=== PATIENT | female | born 1945 | race Caucasian/White ===

== ENCOUNTER 2021-01-02 10:08 | Outpatient (CLI) | payer OTHER, SELFPAY ==
--- NOTE | 2021-01-02 10:00 | RT.EKG_ITS ---
APPROVED REPORT Exam: Resting ECG Patient Location: O HR:61 bpm ECG Measurements Heart Rate 61 AXIS RI 164 P 29 QRSd 94 QRS 9 QT 397 T 27 QTc 399 Conclusion Sinus rhythm...normal P axis, V-rate 60- 99
== END 2021-01-02 10:09 | disposition home or self-care (01) ==
LOC: DI.CM 10:08
PROVIDERS: PCP Family Medicine; Visit Provider Family Medicine
DX: E78.00 Pure hypercholesterolemia, unspecified (principal)
CPT/HCPCS: 93010

== ENCOUNTER 2021-01-13 07:58 | Day surgery (SDC) | payer OTHER, SELFPAY ==
[2021-01-13 08:33] VITALS: BP 145/81; PULSE 71; RESP 16; TEMP 36; O2SAT 96
[2021-01-13] MEDS: Tropicam./Phenyleph. (1/2.5%) 5 ML BTL OS ×3 (08:43→08:53)
[2021-01-13] MEDS: Tetracaine 0.5% 4 ML BTL OS (09:43)
[2021-01-13] MEDS: Balanced Salt Soln.-PLUS 500 ML BAG (09:44)
[2021-01-13] MEDS: Duovisc Viscoelastic System EACH 1 EACH (09:45)
[2021-01-13] MEDS: Lidocaine 1% Pres-Free 5 ML VIAL (09:46)
[2021-01-13] MEDS: Lidocaine 2% Jelly 6 ML SYR (09:48)
[2021-01-13] MEDS: Povidone-Iodine Ophth 30 ML BTL (09:50)
[2021-01-13 10:07] VITALS: BP 156/83; PULSE 61; RESP 18; TEMP 36.5; O2SAT 99
--- NOTE | 2021-01-13 10:09 | W.PM.DSUDISC ---
Discharge Plan Disposition Patient Disposition: HOME Condition: Good Discharge Details Attending Provider: Gunnar Hutchins Primary Care Provider: Prudence Jackson Home Meds and New Rx's Prescriptions: No Action NO DAILY MEDICATIONS NONE RF: 0 Discharge Instructions Stand Alone Forms: Post-op Topical Cataract, Isabel Orosco (DSU) Discharge Orders Discharge Orders: Discharge Order (Routine); Ordered 01/13/21 Ordered By: Gunnar Hutchins DS: Diagnosis Discharge Diagnosis (1) Nuclear sclerotic cataract of left eye: Status: Acute (2) Cortical cataract of left eye: Status: Acute (3) Posterior subcapsular age-related cataract of left eye: Status: Resolved
--- NOTE | 2021-01-13 10:10 | W.PM.OP ---
Date of service: 01/13/21 Time of Service: 10:10 Operative Note Operative Note DATE OF PROCEDURE: 01/13/21 PRE-OP DIAGNOSIS: Nuclear/cortical cataract, left eye POST-OP DIAGNOSIS: same PROCEDURE: Cataract extraction using phacoemulsification with intraocular lens implant, left eye SURGEON: Gunnar Hutchins ANESTHESIA TYPE: Local By Surgeon and MAC Refer to Anesthesia Record PATHOLOGY: none sent COMPLICATIONS: None Patient was transported to: same day Patient's condition: stable Implants: Irving [employer] / [employer] Tecnis ZCB00 Indications: Progressive decreased vision due to cataract, left eye Procedure Description: CATARACT SURGERY OPERATIVE REPORT PREOPERATIVE DIAGNOSIS: Nuclear/cortical cataract, left eye POSTOPERATIVE DIAGNOSIS: Same OPERATION: Cataract extraction using phacoemulsification with posterior chamber intraocular lens implant, left eye. IOL: IOL Qualitative Field Project Manager/Model: J[employer]J Vision / DRE Tecnis ZCB00 IOL Power: + 21.0 diopters IOL Serial Number: [id number] Optic Diameter: 6.0mm Haptic/Overall Diameter: 13.0mm PHACO INFO: Bradley App Annieurion Vision System with OZil and Active Fluidics Cumulative Dispersed Energy (CDE): 6.52 seconds SURGEON: Gunnar Hutchins MD, CEFERINO ANESTHESIA: Monitored Anesthesia Care (MAC), with local sub-tenon's anesthetic infiltration COMPLICATIONS: None SPECIMENS: None INDICATIONS FOR PROCEDURE: The patient is a 75-year-old lady with history of diminished visual acuity in her left eye secondary to the development of nuclear and cortical cataract. The option of cataract surgery was offered to the patient and she felt she was symptomatic enough that she wished to proceed. PROCEDURE: The correct surgical eye was identified and marked as the left eye and the pupil was dilated in the preoperative area using mydriatics and cycloplegics. The dilated pupil size was 7.0 mm. She elected to proceed without sedation. The patient was brought to the operating room where cardiopulmonary monitoring was instituted and surgical time-out was performed, confirming the correct operative eye and IOL power. Topical anesthesia was administered and ophthalmic povidone-iodine 5% was instilled into the conjunctival fornices. Lidocaine gel was applied to the cornea and the zaina-ocular area was prepped with Betadine 10% solution and draped in the usual sterile fashion for intraocular surgery, including an aperture drape. A Tegaderm transparent film dressing was cut in half and used to cover the lashes and lid margins. Care was taken to sequester the lashes and lid margins under the Tegaderm dressing. A lid speculum was placed between the lids of the operative eye and the Gael-Tiffanie operating microscope was maneuvered into position. Marcela scissors were then used to make a conjunctival buttonhole approximately 6mm posterior to the limbus in the inferonasal quadrant. Blunt dissection was carried out to expose bare sclera, and a blunt-tipped sub-tenon?s anesthesia cannula was introduced and passed posteriorly along the globe where non-preserved plain lidocaine was injected into posterior sub-Tenon?s space. A sideport knife was used to make a paracentesis port superior/superiortemporally. Intraocular phenylephrine/lidocaine was injected into the anterior chamber. The anterior chamber was then filled with viscoelastic. A 2.4mm keratome knife was used to create a half-thickness groove at the limbus and then to construct a three-plane near-clear corneal tunnel extending 2.0mm into clear cornea in the temporal position. . A flap was raised on the anterior capsule and capsulorhexis forceps were used to complete a continuous curvilinear capsulorhexis of 5.5mm. Balanced salt solution was then used to perform cortical cleaving hydrodissection and nuclear hydrodelineation until the lens could be freely rotated within the capsular bag. The lens nucleus was then disassembled and removed within the capsular bag and iris plane using phacoemulsification. Residual cortical material was removed using the 45-degree angled silicone I/A tip with 0.3mm port. The posterior capsule was carefully polished to remove as much residual lens epithelial cells as safely possible. The capsular bag was then inflated and the anterior chamber deepened with viscoelastic. The lens implant described above was inserted into the capsular bag using the DRE [place] Injector. A Kuglen hook was used to dial the IOL into position. Residual viscoelastic was then removed first from posterior to the IOL, then from the anterior chamber using the I/A handpiece. The lens implant was noted to center nicely within the capsular bag. The incisions were stromally hydrated, and the anterior chamber was reformed using BSS. Then 0.5cc of moxifloxacin 1.0mg/ml were injected into the capsular bag and anterior chamber. The incisions were checked with a Weck spear and found to be secure. Several drops of ophthalmic povidone-iodine 5% were then applied to the eye followed by two drops of Imprimis combination prednisolone/moxifloxacin/nepafenac solution. The drapes were removed and a clear plastic protective eye shield was placed over the eye. The patient was then returned to Same Day Surgery in stable condition.
== END 2021-01-13 10:35 | disposition home or self-care (01) ==
PROVIDERS: PCP Family Medicine; Visit Provider Ophthalmology
PROC: (CPT 66984; principal; 2021-01-13 10:30)
DX: H25.12 Age-related nuclear cataract, left eye (principal); H25.042 Posterior subcapsular polar age-related cataract, left eye; E78.00 Pure hypercholesterolemia, unspecified
CPT/HCPCS: 66984; V2632

== ENCOUNTER 2021-01-27 06:54 | Day surgery (SDC) | payer OTHER, SELFPAY ==
[2021-01-27 07:04] VITALS: BP 146/87; PULSE 74; RESP 16; TEMP 36.2; O2SAT 93
[2021-01-27] MEDS: Tropicam./Phenyleph. (1/2.5%) 5 ML BTL OD ×3 (07:20→07:32)
[2021-01-27] MEDS: Balanced Salt Soln.-PLUS 500 ML BAG (08:25)
[2021-01-27] MEDS: Duovisc Viscoelastic System EACH 1 EACH (08:25)
[2021-01-27] MEDS: Lidocaine 1% Pres-Free 5 ML VIAL (08:26)
[2021-01-27] MEDS: Lidocaine 2% Jelly 6 ML SYR (08:26)
[2021-01-27] MEDS: Tetracaine 0.5% 4 ML BTL OD (08:27)
[2021-01-27] MEDS: Povidone-Iodine Ophth 30 ML BTL (08:27)
--- NOTE | 2021-01-27 08:49 | W.PM.DSUDISC ---
Discharge Plan Disposition Patient Disposition: HOME Condition: Good Discharge Details Attending Provider: Gunnar Hutchins Primary Care Provider: Prudence Jackson Home Meds and New Rx's Prescriptions: No Action NO DAILY MEDICATIONS NONE RF: 0 Discharge Instructions Stand Alone Forms: Post-op Topical Cataract, Isabel Orosco (DSU) Discharge Orders Discharge Orders: Discharge Order (Routine); Ordered 01/27/21 Ordered By: Gunnar Hutchins DS: Diagnosis Discharge Diagnosis (1) Posterior subcapsular age-related cataract, right eye: Status: Resolved (2) Nuclear sclerotic cataract of right eye: Status: Resolved (3) Cortical cataract of right eye: Status: Resolved
--- NOTE | 2021-01-27 08:50 | ROE_ITS ---
Date of service: 01/27/21 Time of Service: 08:50 Operative Note Operative Note DATE OF PROCEDURE: 01/27/21 PRE-OP DIAGNOSIS: Nuclear/cortical/posterior subcapsular cataract, right eye POST-OP DIAGNOSIS: same PROCEDURE: Cataract extraction using phacoemulsification with intraocular lens implant, right eye SURGEON: Gunnar Hutchins ANESTHESIA TYPE: Local By Surgeon and MAC Refer to Anesthesia Record ESTIMATED BLOOD LOSS: 0 PATHOLOGY: none sent COMPLICATIONS: None Patient was transported to: same day Patient's condition: stable Implants: Irving and [employer] / [employer] Tecnis ZCB00 intraocular lens Indications: Progressive decreased vision due to cataract, right eye Procedure Description: CATARACT SURGERY OPERATIVE REPORT PREOPERATIVE DIAGNOSIS: Nuclear/cortical/posterior subcapsular cataract, right eye POSTOPERATIVE DIAGNOSIS: Same OPERATION: Cataract extraction using phacoemulsification with posterior chamber intraocular lens implant, right eye. IOL: IOL Commissioned Security Officer/Model: J&J Vision / DRE Tecnis ZCB00 IOL Power: + 21.0 diopters IOL Serial Number: [id number] Optic Diameter: 6.0mm Haptic/Overall Diameter: 13.0mm PHACO INFO: Bradley [employer] Medicalurion Vision System with OZil and Active Fluidics Cumulative Dispersed Energy (CDE): 8.37 seconds SURGEON: Gunnar Hutchins MD, CEFERINO ANESTHESIA: Monitored Anesthesia Care (MAC), with local sub-tenon's anesthetic infiltration COMPLICATIONS: None SPECIMENS: None INDICATIONS FOR PROCEDURE: Patient is a 75-year-old lady with history of diminished visual acuity in both eyes secondary to the development of bilateral nuclear and cortical and posterior subcapsular cataract. She has already undergone cataract surgery in the left eye and is doing well postoperatively. She now presents for cataract surgery in the right eye. PROCEDURE: The correct surgical eye was identified and marked as the right eye and the pupil was dilated in the preoperative area using mydriatics and cycloplegics. The dilated pupil size was 7.0 mm. She elected to proceed without oral sedation. The patient was brought to the operating room where cardiopulmonary monitoring was instituted and surgical time-out was performed, confirming the correct operative eye and IOL power. Topical anesthesia was administered and ophthalmic povidone-iodine 5% was instilled into the conjunctival fornices. Lidocaine gel was applied to the cornea and the zaina-ocular area was prepped with Betadine 10% solution and draped in the usual sterile fashion for intraocular surgery, including an aperture drape. A Tegaderm transparent film dressing was cut in half and used to cover the lashes and lid margins. Care was taken to sequester the lashes and lid margins under the Tegaderm dressing. A lid speculum was placed between the lids of the operative eye and the Gael-Tiffanie operating microscope was maneuvered into position. Marcela scissors were then used to make a conjunctival buttonhole approximately 6mm posterior to the limbus in the inferonasal quadrant. Blunt dissection was carried out to expose bare sclera, and a blunt-tipped sub-tenon?s anesthesia cannula was introduced and passed posteriorly along the globe where non- preserved plain lidocaine was injected into posterior sub-Tenon?s space. A sideport knife was used to make a paracentesis port inferiortemporally. Intraocular phenylephrine/lidocaine was injected into the anterior chamber. The anterior chamber was then filled with viscoelastic. A 2.4mm keratome knife was used to create a half-thickness groove at the limbus and then to construct a three-plane near-clear corneal tunnel extending 2.0mm into clear cornea in the superiortemporal position. . A flap was raised on the anterior capsule and capsulorhexis forceps were used to complete a continuous curvilinear capsulorhexis of 5.0 mm. Balanced salt solution was then used to perform cortical cleaving hydrodissection and nuclear hydrodelineation until the lens could be freely rotated within the capsular bag. The lens nucleus was then disassembled and removed within the capsular bag and iris plane using phacoemulsification. Residual cortical material was removed using the I/A handpiece. The posterior capsule was carefully polished to remove as much residual lens epithelial cells as safely possible. The capsular bag was then inflated and the anterior chamber deepened with viscoelastic. The lens implant described above was inserted into the capsular bag using the DRE [place] Injector. A Kuglen hook was used to dial the IOL into position. Residual viscoelastic was then removed first from posterior to the IOL, then from the anterior chamber using the I/A handpiece. The lens implant was noted to center nicely within the capsular bag. The incisions were stromally hydrated, and the anterior chamber was reformed using BSS. Then 0.5cc of moxifloxacin 1.0mg/ml were injected into the capsular bag and anterior chamber. The incisions were checked with a Weck spear and found to be secure. Several drops of ophthalmic povidone-iodine 5% were then applied to the eye followed by two drops of Imprimis combination prednisolone/moxifloxacin/nepafenac solution. The drapes were removed and a clear plastic protective eye shield was placed over the eye. The patient was then returned to Same Day Surgery in stable condition.
== END 2021-01-27 09:30 | disposition home or self-care (01) ==
PROVIDERS: PCP Family Medicine; Visit Provider Ophthalmology
PROC: (CPT 66984; principal; 2021-01-27 08:30)
DX: H25.041 Posterior subcapsular polar age-related cataract, right eye (principal); H25.11 Age-related nuclear cataract, right eye; H25.011 Cortical age-related cataract, right eye; Z96.1 Presence of intraocular lens; Z98.42 Cataract extraction status, left eye
CPT/HCPCS: 66984; V2632

== ENCOUNTER 2021-08-23 13:32 | Outpatient (CLI) | payer OTHER, SELFPAY ==
--- NOTE | 2021-08-23 13:31 | DI.RAD_ITS ---
Exam(s) XR SHOULDER RT COMPLETE 2+V EXAM: XR SHOULDER RT COMPLETE 2+V CLINICAL HISTORY: right shoulder pain,m25.519. TECHNIQUE: 2D digital imaging was performed of the right shoulder. Five images were obtained. AP, Grashey, Y-view and axillary views were obtained. COMPARISON: No exams were available for comparison FINDINGS: BONES: No acute fracture is present. No bony destructive lesion is seen. JOINTS: No dislocation present. Mild degenerative changes are seen at the acromioclavicular joint. SOFT TISSUE: Normal. IMPRESSION: Mild degenerative changes of the right AC joint. DATA REPOSITORY: RADIATION DOSE DELIVERED:
== END 2021-08-23 13:52 ==
PROVIDERS: PCP Family Medicine; Visit Provider Family Medicine
DX: M25.511 Pain in right shoulder (principal); M19.011 Primary osteoarthritis, right shoulder
CPT/HCPCS: 73030

== ENCOUNTER 2021-09-14 01:21 | Outpatient (CLI) | payer MEDICARE, SELFPAY ==
--- NOTE | 2021-09-14 10:05 | DI.MRI_ITS ---
Exam(s) MR UPPER JOINT RT WO EXAM: MR UPPER JOINT RT WO CLINICAL HISTORY: INTENSE PAIN, DJD, ROTATOR CUFF TEAR,M75.100,M25.519. TECHNIQUE: Multiplanar multisequence MRI was performed. COMPARISON: Plain films 23 August 2021 FINDINGS: Bones: There is no fracture or contusion pattern. Degenerative signal changes in the superior humeral head. Red marrow reconversion could indicate anemia. The acromioclavicular joint shows moderate spurring. Glenohumeral joint: There is a large amount of fluid in the subacromial subdeltoid bursa. There is a small amount of fluid in the glenohumeral joint and subcoracoid region. Rotator Cuff: The supraspinatus tendon shows a focal tear, full-thickness involving anterior portion of the tendon. There is some retraction. There is no significant muscle atrophy.. The the infraspinatus, subscap ularis and teres minor are normal. Labrum and biceps anchor: The long head of the biceps tendon appears medially subluxed. The anchor appears intact.. The labru m is within normal limits. IMPRESSION: Focal full-thickness tear of the anterior supraspinatus tendon. Medial subluxation of the long head of the biceps tendon. Large amount of fluid in the subacromial subdeltoid bursa. DATA REPOSITORY:
== END 2021-09-14 01:41 ==
PROVIDERS: PCP Family Medicine; Visit Provider Family Medicine
DX: M25.511 Pain in right shoulder (principal); M25.411 Effusion, right shoulder; M75.101 Unspecified rotator cuff tear or rupture of right shoulder, not specified as traumatic
CPT/HCPCS: 73221

== ENCOUNTER → 2021-12-12 10:49 | Outpatient (BNVA) | payer MEDICARE, SELFPAY | PROVIDERS: PCP Family Medicine; Referring Provider Family Medicine; Visit Provider Student in an Organized Health Care Education/Training Program | DX: M75.101 Unspecified rotator cuff tear or rupture of right shoulder, not specified as traumatic (principal) | CPT/HCPCS: 99204; 99213 ==

== ENCOUNTER 2022-06-15 16:08 | Outpatient (REF) | payer MEDICARE, SELFPAY ==
[2022-06-15 20:34] LABS: Bilirubin Negative (Negative); Blood Moderate (Negative); Clarity Cloudy (Clear); Glucose Negative (Negative); Ketones Negative (Negative); Leukocyte Esterase Large (Negative); Nitrite Negative (Negative); Urobilinogen 0.2 EU/dL (Up TO 0.2); pH 5.5 (5-8)
[2022-06-15 20:43] LABS: Bacteria Moderate HPF (Negative); Epithelial Cells Few HPF (Negative); WBC >50 HPF (0-5)
[2022-06-15 20:44] LABS: C & S Indicated? Yes; Casts Negative LPF (Negative); Crystals Negative HPF (Negative); Mucus Negative (Negative)
== END 2022-06-15 16:09 | disposition home or self-care (01) ==
LOC: LBN 16:08
PROVIDERS: PCP Family Medicine; Visit Provider Physician Assistant
DX: R39.9 Unspecified symptoms and signs involving the genitourinary system (principal)
CPT/HCPCS: 87077; 81003; 81015; 87086; 87186

== ENCOUNTER 2022-11-21 03:14 | Outpatient (CLI) | payer MEDICARE, SELFPAY ==
[2022-11-21 12:44] LABS: Abs Immature Grans 0.02 10^3/uL (0.0-0.06); Absolute Basophil Count 0.07 10^3/uL (0.0-0.2); Absolute Eosinophil Count 0.34 10^3/uL (0.0-0.7); Absolute Lymphocyte Count 1.86 10^3/uL (1.2-3.4); Absolute Monocyte Count 0.43 10^3/uL (0.1-0.8); Absolute Neutrophil Count 3.86 10^3/uL (1.2-6.7); Basophils % 1.1; Eosinophils % 5.2; HCT 48.5 % (36.0-46.0); HGB 15.5 g/dL (11.2-15.7); Immature Grans % 0.3; Lymphocytes % 28.3; MCV 91 fL (80-95); MPV 10.1 fL (8.0-11.0); Monocytes % 6.5; Neutrophils % 58.6; Platelet Count 231 10^3/uL (130-400); RBC 5.35 10^6/uL (3.93-5.22); RDW-SD 43.3 fL; WBC 6.58 10^3/uL (4.4-10.8)
[2022-11-21 12:59] LABS: ALT 21 U/L (14-59); AST 25 U/L (15-37); Albumin 3.7 g/dL (3.4-5.0); Alkaline Phosphatase 72 U/L (46-116); Anion Gap 0.5 mmol/L (3-11); BUN 14 mg/dL (7-18); Bilirubin, Total 0.5 mg/dL (0.2-1.0); CO2 26.5 mmol/L (21.0-32.0); CREATININE 0.8 mg/dL (0.55-1.02); Calcium 8.9 mg/dL (8.5-10.1); Chloride 106 mmol/L (98-107); Glucose 111 mg/dL (74-106); Lipase 149 U/L (73-393); Potassium 4.7 mmol/L (3.5-5.1); Sodium 133 mmol/L (136-145); Total Protein 7.3 g/dL (6.4-8.2)
[2022-11-21 13:11] LABS: Bilirubin Negative (Negative); Blood Negative (Negative); Clarity Clear (Clear); Glucose Negative (Negative); Ketones Negative (Negative); Leukocyte Esterase Negative (Negative); Nitrite Negative (Negative); Specific Gravity >= 1.030 (1.005-1.025); Urobilinogen 0.2 EU/dL (Up TO 0.2); pH 5.5 (5-8)
== END 2022-11-21 03:15 | disposition home or self-care (01) ==
LOC: LOS 03:16
PROVIDERS: PCP Family Medicine; Visit Provider Family Medicine
DX: R10.11 Right upper quadrant pain (principal); R30.0 Dysuria; E78.5 Hyperlipidemia, unspecified
CPT/HCPCS: 36415; 80053; 83690; 81003; 85025

== ENCOUNTER 2022-11-28 01:23 | Outpatient (CLI) | payer MEDICARE, SELFPAY ==
--- NOTE | 2022-11-28 06:44 | DI.US_ITS ---
Exam(s) US ABDOMEN LIMITED EXAM: US ABDOMEN LIMITED CLINICAL HISTORY: RUQ pain,r10.11 TECHNIQUE: Ultrasound abdomen performed using standard protocol. COMPARISON: US ABDOMEN ULTRASOUND (P) from 02/25/2017 FINDINGS: LIVER: Normal size and echogenicity. No focal liver lesions are seen.. GALLBLADDER: No evidence of cholelithiasis. No evidence of wall thickening. No pericholecystic fluid identified. SALCEDO'S SIGN: Negative. BILIARY SYSTEM: No intrahepatic or extrahepatic biliary ductal dilation. RIGHT KIDNEY: Normal size. No evidence of renal calculi. No evidence of hydronephrosis. No suspicious renal mass. No cyst identified. PANCREAS: Normal where visualized. ABDOMINAL AORTA AND IVC: Visualized portions normal caliber. ASCITES: None seen. IMPRESSION: Normal sonographic appearance of the right upper quadrant. DATA REPOSITORY:
== END 2022-11-28 01:43 ==
LOC: DI 01:24
PROVIDERS: PCP Family Medicine; Visit Provider Family Medicine
DX: R10.11 Right upper quadrant pain (principal)
CPT/HCPCS: 76705

== ENCOUNTER 2023-11-06 12:11 | Emergency (ER) | payer MEDICARE, SELFPAY ==
[2023-11-06] VITALS (14 sets, daily range): BP systolic 137–199; BP diastolic 67–98; PULSE 54–77; RESP 12–18; TEMP 36.4–36.5; O2SAT 93–97
--- NOTE | 2023-11-06 12:00 | RT.EKG_ITS ---
APPROVED REPORT Exam: Resting ECG Reason for Exam: Chest Pains Patient Location: E HR:69 bpm ECG Measurements Heart Rate 69 AXIS KS 165 P 49 QRSd 90 QRS 9 QT 401 T 30 QTc 429 Conclusion Sinus rhythm...normal P axis, V-rate 60- 99 Narrow complex normal sinus rhythm at a rate of 69. Left axis. Intervals within normal limits. No ST segment abnormalities. No T wave inversions. Appears similar to prior dated 3 years ago.
--- NOTE | 2023-11-06 12:14 | W.ED.GENAD ---
HPI General Date/Time Provider Initiated Documentation: 11/06/23 12:14. HPI Narrative: MDM This is an overall very well-appearing afebrile and not tachycardic 78-year-old female with chest pain concerning for multiple etiologies. Patient reports that her pain is only in the morning and not exertional but relieved by aspirin. She lacks risk factors for ACS however will obtain ECG and 2 sets of troponins. No tearing quality to suggest aortic dissection. No fevers no cough to suggest pneumonia. No history of emesis to suggest increased risk for esophageal rupture. Not a dialysis patient nor hypotensive nor tachycardic so doubt tamponade. No history of trauma nor falls to suggest increased risk for pneumothorax. No recent URI symptoms nor any positional component so I have a very low suspicion for pericarditis. No rash to chest to suggest zoster. No pain out of proportion to suggest necrotizing soft tissue infection. No epigastric tenderness to suggest pancreatitis. No nausea vomiting or diarrhea and no right upper quadrant pain so doubt acute cholecystitis. 12:53 PM CBC lacks anemia thrombocytopenia and leukocytosis. 1:10 PM Negative reassuring troponin. Basic metabolic panel showing no GARCIA. No acute electrolyte abnormalities. Mildly elevated BUN. 1:25 PM Reassuring negative D-dimer less than 1000 ng/ML FEU. 2:27 PM Repeat troponin negative. Will discharge patient with empiric trial of expectant outpatient management with primary care follow-up. Patient the patient's age she may require stress test moving forward but will defer this decision to her primary care provider. HEART SCORE Chest pain Diagnostic Protocol: [-History/Physical/Gestalt: Slightly Suspicious (0)] [-EKG: Normal and/or unchanged from prior EKG (0)] [- AGE: 65 and older (+2)] [-RISK FACTORS: No known risk factors (0)] [-TROPONIN: <= normal limit (0)] - TOTAL SCORE: 2 - Risk Factors: DM, current or recent smoker, HTN, HLD, family hx of CAD, obesity - INTERPRETATION: With a total score of 3 or less, risk of major cardiac event within six weeks 1.7%, likely lower with two negative troponins. [I explained to the patient that the risk of subsequent major cardiac event within 1 month is not 0, however risk predicted to be less than 2%. Patient verbalized understanding, accepts this risk and shared and the decision for discharge with PCP follow-up for further evaluation and management. They understand to return to the ED immediately with any worsening symptoms, new symptoms or other concerns.] Chronic conditions affecting the care of the patient: N/A History obtained from an outside historian: N/A External record review: [facility] [place] EMR [Diagnostic interpretations performed by me: Per my independent interpretation chest x-ray shows: No acute cardiopulmonary process Per my independent interpretation EKG shows: Narrow complex normal sinus rhythm at a rate of 69. Left axis. Intervals within normal limits. No ST segment abnormalities. No T wave inversions. Appears similar to prior dated 3 years ago. ]Medications: N/A Social determinants of health affecting disposition: N/A Management discussed with: N/A Treatment/interventions considered: N/A Response to therapies provided: N/A HPI This is an 78-year-old female arriving to the emergency department in the setting of left-sided chest pain which began several days ago. Patient reports that she wakes up in the morning and has left-sided chest pain. She says that it is a squeezing sensation. It last for several minutes. It resolves with aspirin of which she has been taking for 81 mg tablets in the morning for the past 3 mornings. She has had no recent falls. She has no history of hypertension hyperlipidemia nor diabetes. She has no siblings but denies any history of premature family coronary artery disease. She drinks a glass of wine with dinner every night but denies routine tobacco and illicits. No recent fevers cough. No shortness of breath. No history of PE nor DVTs. Patient is not a dialysis patient. She has not noticed any rash to her chest. Exam General: Well-appearing in no acute distress speaking in complete sentences. Head: Normocephalic, atraumatic. Eye: Extraocular eye movements intact. No conjunctival injection. No scleral icterus. Ear, nose, mouth, throat: Grossly normal inspection. Normal voice, handling secretions normally. Neck: Trachea midline. Cardiovascular: Well-perfused distal extremities. Regular rate and rhythm Respiratory: Nonlabored respiration. Clear lungs bilaterally Gastrointestinal: Nondistended abdomen. Soft nontender abdomen Musculoskeletal: No edema. Moving all 4 extremities spontaneously. Skin: Normal for age and race, grossly normal temperature and turgor. No acute rash. Neurologic: Alert and appropriate, no apparent acute deficits. Psychiatric: Mood and manner are appropriate. Grooming and personal hygiene are appropriate. Related Data Home Medications Medication Instructions Recorded Confirmed Unknown [No Known Home Meds] 11/16/22 11/06/23 Allergies Allergy/AdvReac Type Severity Reaction Status Date / Time Sulfa (Sulfonamide Allergy Intermediate Swelling Verified 12/13/22 12:57 Antibiotics) PFSH All Active Problems (Updated 11/06/23 @ 14:28 by Jose Dugan MD) Chest pain, unspecified (Acute) Skin lesion (Acute) Osteopenia (Acute) Medical History (Updated 11/06/23 @ 14:28 by Jose Dugan MD) Pain, abdominal, RUQ Rib pain on left side Thoracic back pain Rotator cuff tear Shoulder pain Nuclear sclerotic cataract of left eye Cortical cataract of left eye Cataracts, bilateral Decreased vision in both eyes Chronic pain of right knee (06/15/16) Closed fracture of humerus (05/03/08) Hypercholesterolemia Lip lesion (02/07/16) 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 cyst in [facility] cold nodule/ nl TSH Surgical History Posterior subcapsular age-related cataract, right eye Nuclear sclerotic cataract of right eye Cortical cataract of right eye Posterior subcapsular age-related cataract of left eye Hx of shoulder surgery left History of hysterectomy (12/27/11) Status post breast biopsy Status post tonsillectomy and adenoidectomy Tonsillectomy and adenoidectomy (~1956) Abdominal hysterectomy (~05/1996) Biopsy of breast (~1962) right; benign lump ACNE TREATED WITH RADIATION Family History Mother , 66 Depression Colon cancer Father , 74 Lung cancer Bone cancer Maternal Grandfather , flu at age 91. No problems noted. Paternal Grandfather , 46 Stroke Maternal Grandmother , 91 Dementia Heart disease Paternal Grandmother , BROKEN HIP at age 99. No problems noted. Son No problems noted. Son No problems noted. Son No problems noted. Social History (Updated 12/17/22 @ 13:38 by Shirin Leon) Smoking/Tobacco Use Status: Never Second Hand Exposure: Yes (distant past) Smoking risk assessment performed?: Yes Alcohol Intake: current Alcohol Intake frequency: a few times a month Alcohol type: beer, wine and hard liquor Drug use: Never Substance use type: does not use Caregiver/Support person: No Household members: spouse Housing: house Communication Needs: None Do you need help understanding health information?: Never Pets and animals: No Sexually active: Yes Do you think of yourself as: straight/heterosexual Current gender identity: female What is your relationship status?: How often do you talk on the phone with friends or family?: three or more times per week How often do you get together with friends or relatives?: once per week How often do you attend evangelical or adventist services?: 4 or more times per year Do you belong to any clubs or organized social groups?: no Panel score (0-1 are the most socially isolated patients): 3 What type of physical activity do you participate in: walking and yoga Duration: 45-60 minutes/day Frequency: daily [place]/Jewish: Unitarian Universalist Special [place] needs: No Seatbelt use: always Drive intox or ride w/intox escort car driver: No Do you feel safe at home: Yes Do you feel safe in your relationship?: Yes Medical Decision Making Quality:SDOH Health Related Social Needs: Health related social needs risk of homeless, material hardship, food insecurity, transpo insecurity, personal safety Discharge Plan Disposition Patient Disposition: Home Discharge Details Clinical Impression: Chest pain, unspecified Primary Care Provider: Prudence Jackson ED Provider: Jose Dugan Home Meds and New Rx's Prescriptions: No Action No Known Home Meds Discharge Instructions Additional Instructions: You were seen in the emergency department for your chest pain. Your blood work and EKG showed no sign of a heart attack. Your x-ray showed no sign of pneumonia. Your blood work showed no sign of blood clot in your lungs. As we discussed, please return to the emergency department if you develop worsening pain passout or have difficulty breathing. Otherwise please follow-up with your primary care provider as needed in the next week. Discharge Data Discharge Date/Time-TO BE ENTERED AT DEPARTURE: 11/06/23 14:41
--- NOTE | 2023-11-06 12:30 | DI.RAD_ITS ---
Exam(s) XR CHEST 2V PA LATERAL EXAM: XR CHEST 2V PA LATERAL CLINICAL HISTORY: Chest pain TECHNIQUE: 2D digital imaging was performed. COMPARISON: [facility] from 06/03/2018 FINDINGS: HEART: Normal size. Aorta: Not dilated. PULMONARY VASCULATURE: Normal. LUNGS: Clear. PLEURAL SPACE: No pleural effusion or pneumothorax. BONE:Unremarkable for age. Soft tissues: Unremarkable. IMPRESSION: No acute abnormality. DATA REPOSITORY: RADIATION DOSE DELIVERED:
[2023-11-06 12:45] LABS: Abs Immature Grans 0.01 10^3/uL (0.0-0.06); Absolute Basophil Count 0.08 10^3/uL (0.0-0.2); Absolute Lymphocyte Count 1.93 10^3/uL (1.2-3.4); Absolute Monocyte Count 0.41 10^3/uL (0.1-0.8); Absolute Neutrophil Count 3.23 10^3/uL (1.2-6.7); Basophils % 1.3; Eosinophils % 6.6; HCT 47.8 % (36.0-46.0); HGB 15.7 g/dL (11.2-15.7); Immature Grans % 0.2; Lymphocytes % 31.8; MCHC 32.8 % (32.0-36.0); MCV 88 fL (80-95); MPV 9.7 fL (8.0-11.0); Monocytes % 6.8; Neutrophils % 53.3; Platelet Count 222 10^3/uL (130-400); RBC 5.41 10^6/uL (3.93-5.22); RDW 13.1 % (11.7-14.6); RDW-SD 42.6 fL; WBC 6.06 10^3/uL (4.4-10.8)
[2023-11-06 13:06] LABS: Anion Gap 8.1 mmol/L (3-11); BUN 21 mg/dL (7-18); CO2 26.9 mmol/L (21.0-32.0); CREATININE 0.8 mg/dL (0.55-1.02); Calcium 9.4 mg/dL (8.5-10.1); Chloride 104 mmol/L (98-107); Estimated GFR 74.44 (mL/min/1.73m2); Glucose 105 mg/dL (74-106); Potassium 4.1 mmol/L (3.5-5.1); Sodium 139 mmol/L (136-145); Troponin I < 50 ng/L (<or=60)
[2023-11-06 13:14] LABS: D-Dimer 823 ng/mlFEU (<500)
[2023-11-06 14:22] LABS: Troponin I < 50 ng/L (<or=60)
== END 2023-11-06 14:41 | disposition home or self-care (01) ==
PROVIDERS: Emergency Provider Emergency Medicine; PCP Family Medicine
DX: R07.9 Chest pain, unspecified (principal); R53.83 Other fatigue; R11.0 Nausea; F41.9 Anxiety disorder, unspecified
CPT/HCPCS: 80048; 93005; 99285; 71046; 84484; 85025; 85379; 93010; 99284